=== PATIENT | male | born 1980 | race Caucasian/White ===

== ENCOUNTER 2020-09-16 10:29 | Emergency (ER) | payer OTHER, SELFPAY ==
[~2020-09-16] VITALS: Ht 162.6 cm; Wt 72.6 kg
[~2020-09-16 10:29] MED LIST: LEVOFLOXACIN500 M1 PO; PREDNISONE20 MG PO; PROAIR RES117 MCG/Ac INH; SING10 PO; SYMBICORT1 AE2 IH; XOPENEX3 ML NEB
[2020-09-16 10:32] VITALS: Ht 162.6 cm; Wt 72.6 kg
[2020-09-16 12:12] VITALS: BP 131/92
== END 2020-09-16 12:12 | disposition home or self-care (01) ==
LOC: ED 10:29
DX: J45.901 Unspecified asthma with (acute) exacerbation (principal); Z20.828 Contact with and (suspected) exposure to other viral communicable diseases
CPT/HCPCS: J7512; J7613; J7644; U0003

== ENCOUNTER 2020-09-24 23:01 | Emergency (ER) | payer OTHER, SELFPAY ==
[~2020-09-24] VITALS: Ht 162.6 cm; Wt 72.6 kg
[2020-09-24 23:02] VITALS: Ht 162.6 cm; Wt 72.6 kg
[2020-09-25 00:21] VITALS: BP 139/88
== END 2020-09-25 00:21 | disposition home or self-care (01) ==
LOC: ED 23:01
DX: J45.901 Unspecified asthma with (acute) exacerbation (principal); Z20.828 Contact with and (suspected) exposure to other viral communicable diseases
CPT/HCPCS: J1100; J7613; J7644; U0003

== ENCOUNTER 2020-10-03 05:37 | Emergency (ER) | payer OTHER ==
[~2020-10-03] VITALS: Ht 162.6 cm; Wt 79.8 kg
[2020-10-03 05:44] VITALS: Ht 162.6 cm; Wt 79.8 kg
[2020-10-03] MEDS ORDERED: ADVAIR HFA 115/1 AER IH (08:21)
[2020-10-03] MEDS ORDERED: SINGULAIR10 MG PO (08:21)
[2020-10-03] MEDS ORDERED: CLARITIN10 MG PO (08:21)
[2020-10-03] MEDS ORDERED: PROAIR HFA8.5 GM INH (08:21)
[2020-10-03] MEDS ORDERED: PREDNISONE20 MG PO (08:22)
[2020-10-03 08:55] VITALS: BP 113/91
== END 2020-10-03 08:55 | disposition home or self-care (01) ==
LOC: ED 05:37
DX: J45.901 Unspecified asthma with (acute) exacerbation (principal); R06.03 Acute respiratory distress
CPT/HCPCS: J7512; J7613; J7644